=== PATIENT | female | born 1955 | race African-American/Black ===

== ENCOUNTER 2022-06-05 08:56 | Emergency (ER) | payer OTHER ==
[~2022-06-05] VITALS: Ht 162.6 cm; Wt 75.8 kg
[2022-06-05 09:28] VITALS: BP 145/70
[2022-06-05] MEDS ORDERED: ACET-1080 PO (10:23)
== END 2022-06-05 10:28 | disposition home or self-care (01) ==
LOC: ER 08:56
DX: S83.92XA Sprain of unspecified site of left knee, initial encounter (principal); X50.1XXA Overexertion from prolonged static or awkward postures, initial encounter; Y93.89 Activity, other specified; Y92.89 Other specified places as the place of occurrence of the external cause; Y99.8 Other external cause status
CPT/HCPCS: 73562